=== PATIENT | male | born 1975 ===

== ENCOUNTER 2018-12-19 11:11 | Emergency (ER) | payer OTHER ==
--- NOTE | 2018-12-19 12:25 | C.PDOC ---
History Of Present Illness 43yo male with PMH DM presents to the ED after running out of medication 5 days ago. Patient states he was getting his diabetes medication in [facility], has been having increased urinary frequency. BG 206 on arrival to ED. Also complaining of left shoulder pain for one month. Patient reports pain began suddenly last month, denies any injury or trauma. Patient complains of pain in the left scapula, pain with movement of the arm. Denies fever, chills, chest pain, shortness of breath, abdominal pain. Time Seen by Provider: 12/19/18 11:28 Chief Complaint (Nursing): Dizziness/Lightheaded Past Medical History Vital Signs: Last Vital Signs Temp 98.1 F 12/19/18 11:14 Pulse 96 H 12/19/18 11:14 Resp 18 12/19/18 11:14 BP 149/88 12/19/18 11:14 Pulse Ox 100 12/19/18 11:14 Primary Care Provider: FAMILY PROVIDER,NO - Medical History PMH: Diabetes Family History: States: Unknown Family Hx - Social History Hx Alcohol Use: No Hx Substance Use: No - Immunization History Hx Tetanus Toxoid Vaccination: Yes Hx Influenza Vaccination: Yes Hx Pneumococcal Vaccination: No Review Of Systems Constitutional: Negative for: Fever, Chills Cardiovascular: Negative for: Chest Pain Respiratory: Negative for: Shortness of Breath Gastrointestinal: Negative for: Nausea, Vomiting, Abdominal Pain, Diarrhea, Constipation Genitourinary: Positive for: Frequency. Negative for: Dysuria Neurological: Negative for: Weakness Physical Exam - Physical Exam Appears: Well, Non-toxic, Toxic Skin: Warm, Dry Head: Normacephalic Eye(s): bilateral: Normal Inspection Oral Mucosa: Moist Neck: Supple Chest: Symmetrical Cardiovascular: Rhythm Regular, No Murmur Respiratory: Normal Breath Sounds, No Rales, No Rhonchi, No Wheezing Gastrointestinal/Abdominal: Normal Exam, Bowel Sounds, Soft, No Tenderness Extremity: Capillary Refill (<2 sec), Other (Left shoulder: limited ROM secondary to pain. Tenderness to palpation of left scapula. Pain with PROM at 90 degrees abduction) Neurological/Psych: Oriented x3, Normal Speech Gait: Steady ED Course And Treatment - Laboratory Results Result Diagrams: 12/19/18 13:44 12/19/18 13:44 O2 Sat by Pulse Oximetry: 100 Medical Decision Making Medical Decision Making: Shoulder x-ray negative for fracture or separation, pain control with tylenol/motrin given in ED with relief. Checked labs given history of DM, no acute process noted on labs, recommend [facility] Disposition Counseled Patient/Family Regarding: Studies Performed, Diagnosis, Need For Followup, Rx Given - Disposition Referrals: [facility] [Outside] Disposition: HOME/ ROUTINE Disposition Time: 14:52 Condition: GOOD Additional Instructions: Follow up at [facility] within the next 1-2 weeks for management of your diabetes. Return to ED for worsening symptoms Prescriptions: Ibuprofen [Motrin Tab] 600 mg PO Q8 #30 tab Lidocaine 5% [Lidoderm] 1 ea TD DAILY #10 patch metFORMIN [glucOPHAGE] 500 mg PO BID #60 tab Instructions: Type 2 Diabetes, Diabetes Diet Forms: [facility] (Lao) Print Language: LITHUANIAN - POA Present On Arrival: None - Clinical Impression Clinical Impression: Diabetes type 2, uncontrolled, Shoulder pain, left
--- NOTE | 2018-12-19 12:48 | RAD ---
Date of service: 12/19/2018 PROCEDURE: Radiographs of the left shoulder HISTORY: L shoulder pain COMPARISON: No prior. FINDINGS: Three views were obtained. BONES: Bone alignment and mineralization are normal. There is no acute displaced fracture or bone destruction. JOINTS: The glenohumeral and acromioclavicular joints are preserved. No significant degenerative osteoarthrosis. SOFT TISSUES: There is mild soft tissue swelling and subcutaneous edema in the superior soft tissues. OTHER FINDINGS: None. IMPRESSION: No acute displaced fracture or dislocation.
[2018-12-19 13:12] LABS: URINE BACTERIA RARE (<OCC); URINE BILIRUBIN NEGATIVE (NEGATIVE); URINE BLOOD 1+ (NEGATIVE); URINE CLARITY Clear (Clear); URINE COLOR Yellow (YELLOW); URINE GLUCOSE (UA) 2+ mg/dL (Normal); URINE LEUKOCYTE ESTERASE NEG Leu/uL (Negative); URINE PROTEIN NEGATIVE (NEGATIVE)
[2018-12-19] MEDS ORDERED: Dextrose 50% SYRINGE Inj (50 ml) ONE (13:40)
[2018-12-19 13:52] LABS: BASO # 0.1 K/uL (0.0-0.2); BASO % 0.9 % (0.0-2.0); EOS # 0.1 K/uL (0.0-0.7); EOS % 2.4 % (0.0-4.0); HEMOGLOBIN 15.1 g/dL (12.0-18.0); LYMPH # 2.1 K/uL (1.0-4.3); LYMPH % 32.9 % (20.0-40.0); MEAN CELL VOLUME 81.1 fL (80.0-94.0); MEAN CORPUSCULAR HEMOGLOBIN 28.4 pg (27.0-31.0); MEAN CORPUSCULAR HGB CONC 35.1 g/dL (33.0-37.0); MEAN PLATELET VOLUME 9.5 fL (7.2-11.7); MONO # 0.5 K/uL (0.0-0.8); MONO % 8.3 % (0.0-10.0); NEUT # 3.5 K/uL (1.8-7.0); NEUT % 55.5 % (50.0-75.0); NRBC % 0.1 % (0.0-2.0); RBC 5.3 Mil/uL (4.40-5.90); RED CELL DISTRIBUTION WIDTH 13.5 % (11.5-14.5); WHITE BLOOD COUNT 6.4 K/uL (4.8-10.8)
[2018-12-19 14:05] LABS: BLOOD UREA NITROGEN 22 mg/dL (9-20); CALCIUM 9.3 mg/dl (8.6-10.4); GFR NON-AFRICAN AMERICAN > 60
[2018-12-19 14:08] LABS: ALB/GLOB RATIO 1.4 (1.0-2.1); ALBUMIN 4.5 g/dL (3.5-5.0); ALT/SGPT 23 U/L (21-72); AST/SGOT 42 U/L (17-59)
[2018-12-19 15:14] VITALS: BP 111/76; PULSE 78; RESP 20; TEMP 97.4
[2018-12-19 15:53] VITALS: O2SAT 100
== END 2018-12-19 15:16 | disposition home or self-care (01) ==
LOC: C.ER 11:11
DX: E11.65 Type 2 diabetes mellitus with hyperglycemia (principal); M25.512 Pain in left shoulder